=== PATIENT | female | born 1995 | race Caucasian/White ===

== ENCOUNTER 2018-09-20 11:14 | Inpatient (IN) | payer OTHER ==
[~2018-09-20] VITALS: Ht 157.5 cm; Wt 92.5 kg
[~2018-09-20 11:14] MED LIST: CITA20 PO
[2018-09-20 12:01] LABS: BASOPHILS ABSOLUTE AUTO 0.01 K/mm3 (0.00-0.23); BASOPHILS PERCENT AUTO 0 % (0-2); EOSINOPHILS PERCENT AUTO 0 % (0-6); Hematocrit 43.8 % (33.0-51.0); Hemoglobin 14.4 g/dL (11.5-16.0); IMMATURE GRAN ABSOLUTE AUTO 0.06 K/mm3 (0.00-0.10); IMMATURE GRAN PERCENT AUTO 1 % (0-1); LYMPHOCYTES ABSOLUTE AUTO 1.06 K/mm3 (0.84-5.20); LYMPHOCYTES PERCENT AUTO 18 % (21-46); MONOCYTES ABSOLUTE AUTO 0.27 K/mm3 (0.16-1.47); MONOCYTES PERCENT AUTO 5 % (4-13); Mean Corpuscular HGB 29.1 pg (26.0-34.0); Mean Corpuscular HGB Conc 32.9 g/dL (31.5-36.5); Mean Corpuscular Volume 89 fL (80-100); Mean Platelet Volume 9.8 fL (9.1-12.4); NEUTROPHILS ABSOLUTE AUTO 4.56 K/mm3 (1.96-9.15); NEUTROPHILS PERCENT AUTO 77 % (41-73); Platelet Count 276 K/mm3 (150-400); RDW Coefficient Variation 13.5 % (11.7-14.2); RDW Standard Deviation 43.8 fL (35.1-46.3); Red Blood Cell Count 4.95 M/mm3 (3.80-5.20); White Blood Cell Count 5.96 K/mm3 (4.00-11.30)
[2018-09-20 12:09] LABS: Anion Gap 7 mmol/L (6-16); Blood Urea Nitrogen 8 mg/dL (8-24); Bun/Creatinine Ratio 10.1 (12.0-20.0); CO2, Blood 24 mmol/L (21-32); Calcium, Blood 8.8 mg/dL (8.5-10.1); Chloride, Blood 107 mmol/L (98-108); Creatinine, Blood 0.79 mg/dL (0.40-1.00); Glomerular Filtration Rate >60 (60-); Glucose, Blood 117 mg/dL (70-99); Potassium, Blood 4.3 mmol/L (3.5-5.5); Sodium, Blood 138 mmol/L (136-145)
[2018-09-20] MEDS ORDERED: DULO60 PO (13:53)
[2018-09-20] MEDS ORDERED: Bupropion Xl150 MG PO (13:53)
[2018-09-20 14:57] LABS: Influenza A Negative (NEGATIVE); Influenza B Negative (NEGATIVE)
[2018-09-20 15:45] LABS: International Normalized Ratio 0.95; Prothrombin Time Results 10.1 Sec (9.7-11.5)
[2018-09-20 19:37] LABS: Alanine Aminotransfer (ALT/SGP 76 U/L (12-78); Albumin, Blood 3.2 g/dL (3.4-5.0); Albumin/Globulin Ratio 0.8 (0.8-1.8); Alk Phos 78 U/L (50-136); Anion Gap 11 mmol/L (6-16); Aspartate Aminotrans (AST/SGOT 87 U/L (12-37); Bilirubin, Total 0.3 mg/dL (0.1-1.0); Blood Urea Nitrogen 8 mg/dL (8-24); Bun/Creatinine Ratio 10.9 (12.0-20.0); CO2, Blood 21 mmol/L (21-32); Calcium, Blood 9.1 mg/dL (8.5-10.1); Chloride, Blood 107 mmol/L (98-108); Creatinine, Blood 0.74 mg/dL (0.40-1.00); Glomerular Filtration Rate >60 (60-); Glucose, Blood 101 mg/dL (70-99); Potassium, Blood 4.5 mmol/L (3.5-5.5); Sodium, Blood 139 mmol/L (136-145); Total Protein, Blood 7.2 g/dL (6.4-8.2)
[2018-09-21] MEDS ORDERED: RISP1 PO (05:39)
[2018-09-21 06:02] LABS: Source, Urine Catheter
[2018-09-21 06:05] LABS: Appearance, Urine Clear (Clear); Bilirubin, Urine Neg (Neg); Blood, Urine 1+ (Neg); Color, Urine Yellow (P-Yellow); Glucose Qualitative, Urine 1+ (Neg); Ketones, Urine Neg (Neg); Leukocyte Esterase, Urine Neg (Neg); Nitrite, Urine Neg (Neg); Protein, Urine Neg (Neg); Urobilinogen, Urine NORM (Normal)
[2018-09-21 06:15] LABS: BASOPHILS ABSOLUTE AUTO 0.02 K/mm3 (0.00-0.23); BASOPHILS PERCENT AUTO 0 % (0-2); EOSINOPHILS PERCENT AUTO 0 % (0-6); Hematocrit 41.5 % (33.0-51.0); Hemoglobin 13.5 g/dL (11.5-16.0); IMMATURE GRAN PERCENT AUTO 2 % (0-1); LYMPHOCYTES ABSOLUTE AUTO 0.99 K/mm3 (0.84-5.20); LYMPHOCYTES PERCENT AUTO 17 % (21-46); MONOCYTES ABSOLUTE AUTO 0.11 K/mm3 (0.16-1.47); MONOCYTES PERCENT AUTO 2 % (4-13); Mean Corpuscular HGB Conc 32.5 g/dL (31.5-36.5); Mean Corpuscular Volume 89 fL (80-100); Mean Platelet Volume 9.7 fL (9.1-12.4); NEUTROPHILS PERCENT AUTO 79 % (41-73); Platelet Count 299 K/mm3 (150-400); RDW Coefficient Variation 13.6 % (11.7-14.2); RDW Standard Deviation 44.3 fL (35.1-46.3); Red Blood Cell Count 4.66 M/mm3 (3.80-5.20); White Blood Cell Count 5.72 K/mm3 (4.00-11.30)
[2018-09-21 06:21] LABS: Red Blood Cells, Urine 0-2 /hpf (0-2); Squamous Epithelial Cells Not Seen /hpf (Few); White Blood Cells, Urine Not Seen /hpf (0-5)
[2018-09-21 06:22] LABS: Bacteria Not Seen /hpf
[2018-09-21 06:28] LABS: Albumin, Blood 2.9 g/dL (3.4-5.0); Anion Gap 11 mmol/L (6-16); Blood Urea Nitrogen 11 mg/dL (8-24); Bun/Creatinine Ratio 16.2 (12.0-20.0); CO2, Blood 21 mmol/L (21-32); Calcium, Blood 8.7 mg/dL (8.5-10.1); Chloride, Blood 106 mmol/L (98-108); Creatinine, Blood 0.68 mg/dL (0.40-1.00); Glomerular Filtration Rate >60 (60-); Glucose, Blood 204 mg/dL (70-99); Phosphorus, Blood 2.2 mg/dL (2.5-4.9); Potassium, Blood 3.6 mmol/L (3.5-5.5); Sodium, Blood 138 mmol/L (136-145)
--- NOTE | 2018-09-21 06:33 | NUR ---
ASSUMED CARE OF PT PT TO ICU 6 FROM ER. PT ON AIRVO 45L 80% WITH SATS IN THE LOW 90'S. PT ABLE TO STAND AND PIVOT TO ICU BED WITH LITTLE DIFFICULTY. PT ALERT AND ORIENTED. PT REPORTS THAT SHE IS AUTISTIC AND THAT SHE IS PRIMARY CAREGIVER FOR HER FIANCE WHO IS SCHIZOPHRENIC. PT STATES THAT SHE HAS BEEN FEELING ILL FOR APPROXIMATELY 1 WEEK. PT WAS SNOWBOUND WITHOUT HEAT OR FOOD FOR 4 DAYS[address] UR[address] AND CHEST CT COMPLETED IN ER. SEE FULL SHIFT ASSESSMENT.
--- NOTE | 2018-09-21 07:26 | NUR ---
ASSUMED CARE: PT SITTING UPRIGHT IN BED. HIGH FLOW NC IN PLACE, 45L AT 77% FIO2. 94% O2 SAT. RT IN ROOM WITH PT AT THIS TIME. DYSPNEA WITH SPEECH NOTED. SINUS TACH NOTED. DR MARIE IN ROOM WITH PT AT THIS TIME.
[2018-09-21 07:50] LABS: PCO2 Arterial 29.3 mmHg (35-45); PO2 Arterial 58.2 mmHg (80-100); pH Blood Arterial 7.48 (7.35-7.45)
--- NOTE | 2018-09-21 08:06 | NUR ---
PT REQUESTED TO USE BSC. INSTRUCTED THAT BED NUÑEZ WOULD BE SAFER DUE TO HER RESPIRATORY STATUS AND INCREASED WORK OF BREATHING AND INCREASED HR. ALSO DISCUSSED THE OPTION OF A CARLISLE CATHETER PLACEMENT WHICH SHE DECLINED AT THIS TIME. SCIENTIFIC SOFTWARE ENGINEER IN ROOM AT THIS TIME.
[2018-09-21 11:18] LABS: Adenovirus Not Detected (NOT DETECT); Bordetella pertussis Not Detected (NOT DETECT); Chlamydophila pneumoniae Not Detected (NOT DETECT); Coronavirus 229E Not Detected (NOT DETECT); Coronavirus HKU1 Not Detected (NOT DETECT); Coronavirus NL63 Not Detected (NOT DETECT); Coronavirus OC43 Not Detected (NOT DETECT); Human Metapneumovirus Not Detected (NOT DETECT); Human Rhinovirus/Enterovirus Not Detected (NOT DETECT); Influenza A Not Detected (NOT DETECT); Influenza A/2009-H1 Not Detected (NOT DETECT); Influenza A/H1 Not Detected (NOT DETECT); Influenza A/H3 Not Detected (NOT DETECT); Influenza B Not Detected (NOT DETECT); Mycoplasma pneumoniae Not Detected (NOT DETECT); Parainfluenza Virus 1 Not Detected (NOT DETECT); Parainfluenza Virus 2 Not Detected (NOT DETECT); Parainfluenza Virus 3 Not Detected (NOT DETECT); Parainfluenza Virus 4 Not Detected (NOT DETECT); Respiratory Syncytial Virus Not Detected (NOT DETECT)
--- NOTE | 2018-09-21 18:06 | NUR ---
SHIFT SUMMARY: PT REMAINS ON AIRVO AT 45L, 73% FIO2. SHE DESATS WITH ACTIVITY AND TAKES A FEW MINUTES TO RECOVER BUT FEELS SHE IS TOLERATING ACTIVITY BETTER THAN LAST NIGHT. REPOSITIONS SELF IN BED, CALLS APPROPRIATELY FOR ASSISTANCE. NO FURTHER NEEDS OR CONCERNS IDENTIFIED.
--- NOTE | 2018-09-21 22:00 | NUR ---
ASSUMING CARE RECEIVED PT REPROT FROM [facility] PRECIADO. PT IS ALERT AND ORIENTED AT THE TIME OF SHIFT REPORT. PT IS ADMITTED DUE TO PNEUMONIA AND HAS REQUIRED HIGH AMOUNTS OF SUPPLEMENTAL O2. PT IS CURRENTLY ON AIRVO HIGHFLOW NC AT 45L WITH FIO2 OF APPROX 73%. PT IS MAINTAINING SPO2 IN THE MID 90'S. PT RESP RATE IS IN THE LOW 20'S AT REST BUT WILL INCREASE TO THE 40'S WITH ANY ACTIVITY.PT WILL DESATURATE TO THE LOW 90'S WITH ACTIVITY. PT LUNG SOUNDS AT THIS TIME ARE CLEAR THOUGH THEY SOUND TIGHT AND DIMINISHED IN THE LOWER LOBES. PT REPORTS THAT SHE FEELS IF SHE IS BREATHING "BETTER" PT IS ABLE TO USE THE BEDSIDE COMMODE WITH MINIMAL ASSISTANCE. PT RECEIVING NS AT O FOR INFUSION OF ANTIBIOTICS. INFUSION COMPLETE SHORTLY AFTER CARE ASSUMED AND PT IV'S WERE SALINE LOCKED AT THAT TIME. ASSUMING CARE OF PT AT THE TIME OF SHIFT REPORT. WILL CONTINUE TO MONITOR PT.
[2018-09-22 04:02] LABS: BASOPHILS ABSOLUTE AUTO 0.03 K/mm3 (0.00-0.23); BASOPHILS PERCENT AUTO 0 % (0-2); EOSINOPHILS PERCENT AUTO 0 % (0-6); Hematocrit 39.9 % (33.0-51.0); IMMATURE GRAN ABSOLUTE AUTO 0.31 K/mm3 (0.00-0.10); IMMATURE GRAN PERCENT AUTO 2 % (0-1); LYMPHOCYTES ABSOLUTE AUTO 2.02 K/mm3 (0.84-5.20); LYMPHOCYTES PERCENT AUTO 13 % (21-46); MONOCYTES ABSOLUTE AUTO 0.97 K/mm3 (0.16-1.47); MONOCYTES PERCENT AUTO 6 % (4-13); Mean Corpuscular HGB Conc 32.6 g/dL (31.5-36.5); Mean Corpuscular Volume 89 fL (80-100); Mean Platelet Volume 9.5 fL (9.1-12.4); NEUTROPHILS PERCENT AUTO 78 % (41-73); Platelet Count 362 K/mm3 (150-400); RDW Coefficient Variation 13.4 % (11.7-14.2); RDW Standard Deviation 44.3 fL (35.1-46.3); Red Blood Cell Count 4.48 M/mm3 (3.80-5.20); White Blood Cell Count 15.13 K/mm3 (4.00-11.30)
[2018-09-22 04:21] LABS: Alanine Aminotransfer (ALT/SGP 66 U/L (12-78); Albumin, Blood 2.7 g/dL (3.4-5.0); Albumin/Globulin Ratio 0.7 (0.8-1.8); Alk Phos 63 U/L (50-136); Anion Gap 9 mmol/L (6-16); Aspartate Aminotrans (AST/SGOT 50 U/L (12-37); Bilirubin, Total 0.6 mg/dL (0.1-1.0); Blood Urea Nitrogen 13 mg/dL (8-24); Bun/Creatinine Ratio 21.2 (12.0-20.0); CO2, Blood 23 mmol/L (21-32); Calcium, Blood 8.7 mg/dL (8.5-10.1); Chloride, Blood 109 mmol/L (98-108); Creatinine, Blood 0.61 mg/dL (0.40-1.00); Globulin, Blood 3.8 g/dL (2.2-4.0); Glomerular Filtration Rate >60 (60-); Glucose, Blood 163 mg/dL (70-99); Magnesium, Blood 2.1 mg/dL (1.6-2.4); Phosphorus, Blood 3.5 mg/dL (2.5-4.9); Potassium, Blood 4.1 mmol/L (3.5-5.5); Sodium, Blood 141 mmol/L (136-145); Total Protein, Blood 6.5 g/dL (6.4-8.2)
[2018-09-22 04:55] LABS: PCO2 Arterial 35.3 mmHg (35-45); PO2 Arterial 70.9 mmHg (80-100); pH Blood Arterial 7.44 (7.35-7.45)
--- NOTE | 2018-09-22 05:57 | NUR ---
SHIFT SUMMARY NOTE PT HAS REMAINED ALERT AND ORIENTED THROUGHOUT THE NIGHT WHILE AWAKE. PT HAS SLEPT THROUGH THE MAJORITY OF THE NIGHT. PT LUNG SOUNDS CONTINUE TO BE DIMINISHED AND TIGHT IN THE BASES. PT REMAINS ON ARIVO NC AT 45L/M. FIO2 WAS TITRATED DOWN BY RT TO 62%. PT IS MAINTAINING SPO2 IN THE MID 90'S. PT IS SALINE LOCKED AT THIS TIME. PT IS CONCHA TO REPOSITION SELF IN BED WITHOUT ASSISTANCE AND IS ABLE TO USE THE BEDSIDE COMMODE WITH MINIMAL ASSISTANCE. PT HAS BEEN ABLE TO USE CALL LIGHT APPROPRIATELY AND IS ABLE TO MAKE NEEDS KNOWN. THERE WERE NO ACUTE CHANGES OVERNIGHT. WILL REPORT OFF TO [facility] DAY SHIFT NURSE.
--- NOTE | 2018-09-22 07:30 | NUR ---
ASSUMED CARE: PT RESTING QUIETLY. AIRVO IN PLACE AT 45L, 63% FIO2. VSS. NO ACUTE NEEDS OR CONCERNS AT THIS TIME.
--- NOTE | 2018-09-22 10:58 | NUR ---
PT TRANSFERRED TO ROOM PCU 14. REPORT CALLED TO KITA EUBANKS. PT TRANSFERRED VIA WHEELCHAIR WITHOUT ISSUE
--- NOTE | 2018-09-22 11:46 | NUR ---
ASSUMED CARE AND COMFORT OF THIS PATIENT FROM DREAD EUBANKS IN ICU. PT ARRIVED TO PCU RT PLACED AIRVO IN ROOM FOR PATIENT. SHE IS ON 65LITERS O2 AT THIS TIME AND 45%. SHE ASKS FOR PUDDING ON ARRIVAL TO PCU AND ICE WATER. PT HAS FLAT AFFECT. CALL LIGHT AND COMMDOE ARE PLACED NEXT TO BED FOR PATIENT COMFORT. WILLCONTINUE TO MONITOR THIS PATIENT CLOSELY.
--- NOTE | 2018-09-22 19:12 | NUR ---
END OF SHIFT SUMMARY; PT TRANSFERRED TO PCU FROM ICU TODAY. PT IS ON AIRVO. ABLE TO AMBULATE TO AND FROM BATHROOM WITHOUT ASSIST. REPORT TO SILVER EUBANKS WHO WILL ASSUME CARE OF THIS PATIENT.
--- NOTE | 2018-09-23 01:19 | NUR ---
CALL TO FOR PSYCH MEDS PT STATES SHE HAS BEEN WITHOUT PSYCH MEDS FOR 3-4 DAYS AND STATES "I GET REALLY SUICIDAL IF I GO AROUND A WEEK WITHOUT THEM." CALL TO MD STRICKLAND FOR PT'S LISTED HOME MEDS DULOXETINE AND RISPERIDONE, ORDERS GIVEN BY MD STRICKLAND, SEE EMAR.
--- NOTE | 2018-09-23 04:59 | NUR ---
SHIFT SUMMARY PT A&O X4, INDEPENDENT IN ROOM. PT LUNG SOUNDS CLEAR IN UPPER LOBES, DIM IN BASES. SPO2 > 90% ON AIRVO @ 45L, 63%. MONITOR SHOWS SR/ST, HR 90'S-115, HR 130'S W/ AMBULATION TO BATHROOM WITH RETURN TO BASELINE ONCE BACK IN BED. CALL TO MD STRICKLAND W/ ORDERS GIVEN FOR PT TO RESUME HOME MEDS DULOXETINE & RISPERIDONE, SEE EMAR. WILL CONTINUE TO MONITOR AND PROVIDE CARE UNTIL REPORT OFF TO DAY SHIFT RN.
--- NOTE | 2018-09-23 16:18 | NUR ---
SHIFT SUMMARY THE PATIENT WAS TRANSFERRED TO THE MEDICAL FLOOR FROM PCU THIS AFTERNOON. THE PATIENT IS A&O X4, AND INDEPENDENT IN HER ROOM. THE PATIENT ARRIVED WEARING 8 LITERS OF O2 VIA WHEELCHAIR. THE PATIENT IS RESTING AT THIS TIME, WILL CONTINUE TO MONITOR.
--- NOTE | 2018-09-23 19:26 | NUR ---
CALL LIGHT IN REACH, IN BED. SHE IS A INDEPENDANT. ABOUT TO TAKE AA SHOWER AND BRUSH TEETH. ON EIGHT LITERS OF OXYGEN.
[2018-09-24 05:52] LABS: Hematocrit 43.3 % (33.0-51.0); Hemoglobin 14.2 g/dL (11.5-16.0); Mean Corpuscular HGB 28.9 pg (26.0-34.0); Mean Corpuscular HGB Conc 32.8 g/dL (31.5-36.5); Mean Corpuscular Volume 88 fL (80-100); Platelet Count 428 K/mm3 (150-400); RDW Coefficient Variation 13.5 % (11.7-14.2); RDW Standard Deviation 43.7 fL (35.1-46.3); Red Blood Cell Count 4.91 M/mm3 (3.80-5.20); White Blood Cell Count 9.74 K/mm3 (4.00-11.30)
[2018-09-24 06:16] LABS: Anion Gap 11 mmol/L (6-16); Blood Urea Nitrogen 16 mg/dL (8-24); Bun/Creatinine Ratio 20.8 (12.0-20.0); CO2, Blood 21 mmol/L (21-32); Calcium, Blood 8.9 mg/dL (8.5-10.1); Chloride, Blood 107 mmol/L (98-108); Creatinine, Blood 0.77 mg/dL (0.40-1.00); Glomerular Filtration Rate >60 (60-); Glucose, Blood 98 mg/dL (70-99); Potassium, Blood 4.1 mmol/L (3.5-5.5); Sodium, Blood 139 mmol/L (136-145)
[2018-09-24 06:34] LABS: BAND PERCENT MAN 3 % (0-8); BASOPHILS PERCENT MAN 0 % (0-2); EOSINOPHILS PERCENT MAN 0 % (0-6); LYMPHOCYTES ABSOLUTE MAN 2.92 K/mm3 (0.84-5.20); LYMPHOCYTES PERCENT MAN 30 % (21-46); METAMYELOCYTE ABSOLUTE MAN 0.09 K/mm3 (0.00-0.00); METAMYELOCYTE PERCENT MAN 1 % (0-0); MONOCYTES ABSOLUTE MAN 0.97 K/mm3 (0.16-1.47); MONOCYTES PERCENT MAN 10 % (4-13); MYELOCYTE ABSOLUTE MAN 0.29 K/mm3 (0.00-0.00); MYELOCYTE PERCENT MAN 3 % (0-0); NEUTROPHILS ABSOLUTE MAN 5.45 K/mm3 (1.96-9.15); SEG NEUTROPHILS PERCENT MAN 53 % (41-73); TOTAL CELLS COUNTED 100
--- NOTE | 2018-09-24 07:32 | NUR ---
Rn summary: Patient is alert and oriented. She can be "intense" about her care and how she likes things but is cooperative. Pt remains on 8 liters high flow O2. Lungs were clear all lobes. Pt has no c/o respiratory distress. She did shower at 2100. Sat in chair for a while then rested without distress most of the night. Pt is on her mensus, is able to self care. Call light in reach.
[2018-09-24] MEDS ORDERED: ALBU90OI INH (16:14)
[2018-09-24] MEDS ORDERED: LEVFLO500 PO (16:16)
--- NOTE | 2018-09-24 16:40 | NUR ---
PATIENT DISCHARGE THE PATIENT WAS DISCHARGED HOME WITH HER FAMILY AFTERDISCHARGE INSTRUCTIONS WERE GIVEN TO THE PATIENT. THE PATIENT WAS INSTRUCTED TO FOLLOW-UP WITH HER PCP AND TO TAKE THE PRESCRIBED ABX DIRECTED TO COMPLETION. THE PATIENT LEFT THE HOSPITAL WITHOUT COMCERN OR COMPLAINT.
== END 2018-09-24 16:38 | disposition home or self-care (01) | DRG 871 ==
LOC: ER 11:14 → ICUE 15:06 → ERHOLD 15:06 → PCU 09-21 05:15 → ICUE 09-21 05:27 → PCU 09-22 10:49 → MEDS 09-23 14:53
PROVIDERS: Emergency Medicine; Internal Medicine; Internal Medicine Pulmonary Disease; Physician Assistant; ADMIT Internal Medicine
DX: A41.9 Sepsis, unspecified organism (principal); J18.9 Pneumonia, unspecified organism; J96.01 Acute respiratory failure with hypoxia; J80 Acute respiratory distress syndrome; E66.01 Morbid (severe) obesity due to excess calories; F32.9 Major depressive disorder, single episode, unspecified; F12.10 Cannabis abuse, uncomplicated; E83.39 Other disorders of phosphorus metabolism; R73.9 Hyperglycemia, unspecified; T38.0X5A Adverse effect of glucocorticoids and synthetic analogues, initial encounter; Z87.891 Personal history of nicotine dependence; Z79.899 Other long term (current) drug therapy; Z88.1 Allergy status to other antibiotic agents
CPT/HCPCS: 36415; 36600; 71045; 71046; 71260; 80048; 80053; 80069; 81001; 81025; 82803; 82947; 83605; 83735; 83880; 84100; 84145; 85025; 85610; 85730; 87040; 87070; 87205; 87486; 87581; 87633; 87798; 87804; 93306; 94640; 94760; 96361; 96365; 96375; 99285-25; J1650; J1956; J2930; J7030; J7050; J7060; Q9967

== ENCOUNTER 2020-05-16 18:53 | Emergency (ER) | payer OTHER ==
[~2020-05-16] VITALS: Ht 157.5 cm; Wt 103.4 kg
[~2020-05-16 18:53] MED LIST changes: +ALBU90OI INH; +Bupropion Xl150 MG PO; +DULO60 PO; +LEVFLO500 PO; +RISP1 PO
== END 2020-05-16 21:31 | disposition home or self-care (01) ==
LOC: ER 18:53
DX: M25.552 Pain in left hip (principal); F32.9 Major depressive disorder, single episode, unspecified; Z88.0 Allergy status to penicillin; Z79.899 Other long term (current) drug therapy; Z87.39 Personal history of other diseases of the musculoskeletal system and connective tissue
CPT/HCPCS: 73502; 99283-25

== ENCOUNTER → 2020-11-09 | Outpatient (CLI) | payer OTHER ==
[~2020-11-09] MED LIST changes: +BUPR150ER PO; -Bupropion Xl150 MG PO; +CYCL10 PO
== END | disposition home or self-care (01) ==
LOC: LAB SHORT 12:26
DX: N75.0 Cyst of Bartholin's gland (principal); L73.9 Follicular disorder, unspecified
CPT/HCPCS: 87070; 87075; 87076; 87185; 87205